=== PATIENT | male | born 1940 | race African-American/Black ===

== ENCOUNTER 2019-09-29 16:48 | Inpatient (IN) | payer MEDICARE, OTHER ==
[~2019-09-29] VITALS: Ht 167.6 cm; Wt 84.4 kg
[2019-09-29 19:30] VITALS: BP 116/88
--- NOTE | 2019-09-29 20:00 | NUR ---
New admission, medical/nursing report given from [facility]. Received patient awake in bed, stable condition; AAO x1 to person only. Primary language is Urdu. Room air, tolerating well. Vital signs are within normal limits. No complaints of pain at this moment. Physical assessment done. Skin assessment done and pictures taken. Fall prevention observed. Bed is in low and locked position, side rails up x2 for safety; bed alarm is on. Call light and frequently used items are within reach. Provided all needed education, including on how to use call light. Will continue to monitor and give care.
[2019-09-29] MEDS ORDERED: DONE10TA44 PO (20:11)
[2019-09-29] MEDS ORDERED: ASPI-605 PO (20:11)
[2019-09-29] MEDS ORDERED: CARB-93 PO (20:11)
[2019-09-29] MEDS ORDERED: METO-357 PO (20:11)
[2019-09-29] MEDS ORDERED: LEVE500T20 PO (20:11)
[2019-09-29] MEDS ORDERED: FOLI1CAP7 PO (20:11)
[2019-09-29] MEDS ORDERED: LISI2.5T2 PO (20:11)
[2019-09-29] MEDS ORDERED: HYDR50CA5 PO (20:11)
[2019-09-29] MEDS ORDERED: HYDR50TA62 PO (20:11)
[2019-09-29] MEDS ORDERED: ATOR40TA PO (20:11)
[2019-09-29] MEDS ORDERED: APIX5TAB PO (20:11)
[2019-09-29] MEDS ORDERED: TRAM50TA2 PO (20:11)
[2019-09-29] MEDS ORDERED: RANI300T4 PO (20:11)
[2019-09-29] MEDS ORDERED: CYAN-10 IJ (20:11)
[2019-09-29] MEDS ORDERED: LEVETIRACETAM 250 MG TABLET ONE (22:21)
[2019-09-29] MEDS: LEVETIRACETAM 500 MG TABLET PO SCH (22:31)
[2019-09-29] MEDS: ATORVASTATIN 40 MG TABLET PO SCH (22:31)
[2019-09-30] MEDS ORDERED: Z GUARD REMEDY PASTE 57 GM TUBE TOP PRN (02:00)
[2019-09-30 04:20] VITALS: BP 135/92
[2019-09-30 07:09] LABS: BASOPHILS % (AUTO) 0.6 % (0.0-2.0); EOSINOPHILS # (AUTO) 0.2 K/uL (0.0-0.7); EOSINOPHILS % (AUTO) 3.2 % (0.0-7.0); HEMATOCRIT 44.6 % (36.7-47.1); HEMOGLOBIN 14.5 g/dL (12.5-16.3); LYMPHOCYTES % (AUTO) 32.3 % (20.5-51.5); MEAN CORPUSCULAR HEMOGLOBIN 28.9 uug (23.8-33.4); MEAN CORPUSCULAR HGB CONC 32 g/dL (32.5-36.3); MEAN CORPUSCULAR VOLUME 89.1 fL (73.0-96.2); MONOCYTES # (AUTO) 0.8 K/uL (2.0-10.0); MONOCYTES % (AUTO) 12.9 % (0.0-11.0); NEUTROPHILS # (AUTO) 3.2 K/uL (1.8-8.9); PLATELET COUNT (AUTO) 213 K/uL (152-348); RED BLOOD CELL COUNT(AUTO) 5.01 MIL/uL (4.06-5.63); WHITE BLOOD COUNT (AUTO) 6.2 K/uL (3.6-10.2)
[2019-09-30 08:02] LABS: BILIRUBIN,TOTAL 0.4 mg/dL (0.2-1.0); CREATININE 1.1 mg/dL (0.6-1.3); MAGNESIUM 2.1 mg/dL (1.8-2.4); POTASSIUM 4.2 mmol/L (3.5-5.1)
[2019-09-30 08:04] LABS: THYROID STIMULATING HORMONE 3.72 mIU/mL (0.358-3.740)
[2019-09-30] MEDS ORDERED: APIXABAN 5 MG TABLET PO ONE (09:00)
[2019-09-30] MEDS ORDERED: [UNRECOGNIZED DRUG - OTHER] PO SCH (09:00)
[2019-09-30] MEDS ORDERED: TRAMADOL HCL 50 MG TABLET PO PRN (09:00)
[2019-09-30] MEDS ORDERED: FOLIC ACID PO SCH (09:00)
[2019-09-30] MEDS ORDERED: VITAMIN B COMP W C PO SCH (09:00)
[2019-09-30] MEDS ORDERED: TRAMADOL HCL 50 MG TABLET PO SCH (09:00)
[2019-09-30] MEDS: FOLIC ACID/VITAMIN B COMP W-C TABLET PO SCH (09:07)
[2019-09-30] MEDS: LEVETIRACETAM 500 MG TABLET PO SCH ×2 (09:08→20:09)
[2019-09-30] MEDS: LISINOPRIL 5 MG TABLET PO SCH (09:08)
[2019-09-30] MEDS: DONEPEZIL 10 MG TABLET PO SCH (09:10)
[2019-09-30] MEDS: METOPROLOL SUCCINATE XL 50 MG TAB.SR.24H PO SCH (09:11)
[2019-09-30] MEDS: ASPIRIN EC 81 MG TABLET.DR PO SCH (09:11)
[2019-09-30] MEDS: CARBIDOPA/LEVODOPA 25-100MG TABLET PO SCH ×2 (09:12→17:22)
[2019-09-30] MEDS: APIXABAN 5 MG TABLET PO SCH (17:23)
[2019-09-30 17:31] VITALS: BP 108/67
[2019-09-30] MEDS: ATORVASTATIN 40 MG TABLET PO SCH (20:09)
[2019-09-30 20:10] VITALS: BP 97/61
--- NOTE | 2019-10-01 05:00 | NUR ---
pt only alble to void 100 ml overnight, blader scan shows 176, gave opt 500 ml of water in parts, will continue to assess
[2019-10-01 05:24] VITALS: BP 94/62
[2019-10-01] MEDS: METOPROLOL SUCCINATE XL 50 MG TAB.SR.24H PO SCH (08:40)
[2019-10-01] MEDS: LEVETIRACETAM 500 MG TABLET PO SCH ×2 (08:40→20:15)
[2019-10-01] MEDS: LISINOPRIL 5 MG TABLET PO SCH (08:40)
[2019-10-01] MEDS: DONEPEZIL 10 MG TABLET PO SCH (08:40)
[2019-10-01] MEDS: FOLIC ACID/VITAMIN B COMP W-C TABLET PO SCH (08:40)
[2019-10-01] MEDS: ASPIRIN EC 81 MG TABLET.DR PO SCH (08:40)
[2019-10-01] MEDS: CARBIDOPA/LEVODOPA 25-100MG TABLET PO SCH ×2 (08:41→17:18)
[2019-10-01] MEDS: APIXABAN 5 MG TABLET PO SCH ×2 (08:45→17:20)
--- NOTE | 2019-10-01 16:10 | NUR ---
Patient continue therapy for ambulation, increase strenght and endurance. not in distress. no complaint of pain/discomfort. Continue supervision in meals, On swallowing and fall risk precaution maintained. will continue monitor
--- NOTE | 2019-10-01 19:30 | NUR ---
PATIENT ALERT AND ORIENTED X 1 AND FORGETFUL. NO C/O PAIN OR SOB AT THIS TIME. PATIENT BRIEF CHANGED, AND MADE COMFORTABLE. CALL LIGHT AND FREQUENTLY USED ITEMS WITHIN REACH. SIDE RAILS UP BILATERALLY AND BED ALARM ON. WILL CONTINUE TO MONITOR.
[2019-10-01 19:51] VITALS: BP 93/52
[2019-10-01] MEDS: ATORVASTATIN 40 MG TABLET PO SCH (20:15)
[2019-10-02 05:58] VITALS: BP 96/58
[2019-10-02 07:50] LABS: THYROID STIMULATING HORMONE 5.032 mIU/mL (0.358-3.740)
[2019-10-02 09:00] VITALS: BP 108/66
[2019-10-02] MEDS: METOPROLOL SUCCINATE XL 50 MG TAB.SR.24H PO SCH (09:00)
[2019-10-02] MEDS: CARBIDOPA/LEVODOPA 25-100MG TABLET PO SCH ×2 (09:06→17:29)
[2019-10-02] MEDS: DONEPEZIL 10 MG TABLET PO SCH (09:06)
[2019-10-02] MEDS: LEVETIRACETAM 500 MG TABLET PO SCH ×2 (09:06→20:30)
[2019-10-02] MEDS: FOLIC ACID/VITAMIN B COMP W-C TABLET PO SCH (09:06)
[2019-10-02] MEDS: ASPIRIN EC 81 MG TABLET.DR PO SCH (09:06)
[2019-10-02] MEDS: LISINOPRIL 5 MG TABLET PO SCH (09:07)
[2019-10-02] MEDS: APIXABAN 5 MG TABLET PO SCH ×2 (09:09→17:29)
--- NOTE | 2019-10-02 11:00 | NUR ---
Received patient in bed awake; Patient is AAO x 1-2, forgetful; NO acute distress noted in stable condition. Denies any pain at this time. Vital signs assessed and stable for patient. Due medications administered as ordered and scheduled; Held Metoprolol due to low BP 108/66 and HR of 58-60. Patient on PT/OT therapy. Still noted with left sided weakness. Safety measures in place, needs attended, skin kept clean and dry will continue with care.
--- NOTE | 2019-10-02 12:35 | NUR ---
INDIVIDUALIZE OVERALL PLAN OF CARE
[2019-10-02 17:00] VITALS: BP 112/78
--- NOTE | 2019-10-02 18:29 | NUR ---
Patient AAO X 1-2 and forgetful but able to make needs known. NO SOB noted. NO SOB noted. On PT/OT therapy; Patient cooperative with care. Due medications administered. Patient is BRP and with max assist. Skin kept clean and dry. Patient noted with an abrasion on left groin area while giving care. For wound consultation refereed. Safety measures in place, needs attended, call light left at bed side and reminded patient to use call light and will continue with care.
[2019-10-02 19:55] VITALS: BP 121/72
[2019-10-02] MEDS: ATORVASTATIN 40 MG TABLET PO SCH (20:30)
--- NOTE | 2019-10-02 20:42 | NUR ---
PATIENT IS IN BED, ALERT AND VERBALLY RESPONSIVE. AFEBRILE. NO ACUTE DISTRESS NOTED. CAN MAKE NEEDS KNOWN. ABLE TO FOLLOW SIMPLE COMMANDS. FALL, SAFETY, AND ASPIRATION PRECAUTIONS OBSERVED. STROKE ASSESSMENT DONE. RECEIVED DUE MEDICATIONS. TOLERATED MEDICATIONS WELL. BED AT LOW POSITION, BED WHEELS LOCKED, SIDE RAILS X 2 UP, CALL LIGHT WITHIN REACH.
[2019-10-03 06:00] VITALS: BP 120/73
--- NOTE | 2019-10-03 06:28 | NUR ---
PATIENT IS IN BED, ALERT AND VERBALLY RESPONSIVE. PATIENT SLEPT WELL THROUGHOUT THE NIGHT. ALL NEEDS ATTENDED. KEPT PATIENT WARM, DRY, AND COMFORTABLE. ENDORSE CARE ACCORDINGLY TO ONCOMING SHIFT.
[2019-10-03 08:00] VITALS: BP 140/68
[2019-10-03] MEDS: FOLIC ACID/VITAMIN B COMP W-C TABLET PO SCH (08:42)
[2019-10-03] MEDS: CARBIDOPA/LEVODOPA 25-100MG TABLET PO SCH ×2 (08:42→17:26)
[2019-10-03] MEDS: ASPIRIN EC 81 MG TABLET.DR PO SCH (08:42)
[2019-10-03] MEDS: DONEPEZIL 10 MG TABLET PO SCH (08:42)
[2019-10-03] MEDS: LEVETIRACETAM 500 MG TABLET PO SCH ×2 (08:42→20:04)
[2019-10-03] MEDS: METOPROLOL SUCCINATE XL 50 MG TAB.SR.24H PO SCH (08:43)
[2019-10-03] MEDS: LISINOPRIL 5 MG TABLET PO SCH (08:43)
[2019-10-03] MEDS: APIXABAN 5 MG TABLET PO SCH ×2 (08:45→17:25)
--- NOTE | 2019-10-03 10:49 | NUR ---
INTERDISCIPLINARY TEAM CONFERENCE
--- NOTE | 2019-10-03 12:47 | NUR ---
WOUND CARE CONSULT: PT PRESENTS WITH SCARS TO LOWER LEGS AND TO LEFT UPPER THIGH, PRESENT ON ADMISSION. RECOMMENDATIONS MADE FOR SKIN PROTECTION. DISCUSSED WITH NURSING STAFF. WILL SEE PRN. ENCARNACION IN AGREEMENT WITH PLAN OF CARE. Addendum: 10/03/19 at 1248 by RYAN CORRAL RN Amended: Links added.
[2019-10-03 17:00] VITALS: BP 104/67
--- NOTE | 2019-10-03 19:19 | NUR ---
Patient AAO x1. No acute distress. In stable condition and in bed at this time. Vital signs taken and within normal limit for patient. Due medications administered as ordered and scheduled and tolerated well. Patient assisted with feeding during care. Pt. noted with left sided weakness but cooperates with care. Skin kept clean and dry. Patient seen by wound Tx nurse and with an order to cover upper left inner thigh scar with Mepilex for protection. Skin kept clean and dry, needs attended, safety measures in place, call light left at bed side, endorsed to next shift and will continue with care.
[2019-10-03 19:44] VITALS: BP 101/62
[2019-10-03] MEDS: ATORVASTATIN 40 MG TABLET PO SCH (20:04)
--- NOTE | 2019-10-03 23:06 | NUR ---
Received pt resting in bed and watching tv. AAO x2. No acute distress noted. Denies pain/ discomfort. No facial cues noted for pain. Due meds given as ordered. Safety measures maintained. Call light and personal items within reach. Will continue to monitor.
[2019-10-04 05:29] VITALS: BP 105/74
--- NOTE | 2019-10-04 07:51 | NUR ---
Patient noted resting in bed with eyes closed, no facial cues of pain at this time, no signs of distress noted, call light in reach, bed locked and in lowest position, all needs met at this time, will continue to plan of care
[2019-10-04] MEDS: FOLIC ACID/VITAMIN B COMP W-C TABLET PO SCH (08:54)
[2019-10-04] MEDS: LEVETIRACETAM 500 MG TABLET PO SCH ×2 (08:54→20:18)
[2019-10-04] MEDS: LISINOPRIL 5 MG TABLET PO SCH (08:54)
[2019-10-04] MEDS: METOPROLOL SUCCINATE XL 50 MG TAB.SR.24H PO SCH (08:54)
[2019-10-04] MEDS: ASPIRIN EC 81 MG TABLET.DR PO SCH (08:55)
[2019-10-04] MEDS: CARBIDOPA/LEVODOPA 25-100MG TABLET PO SCH ×2 (08:55→17:18)
[2019-10-04] MEDS: DONEPEZIL 10 MG TABLET PO SCH (08:55)
[2019-10-04 09:00] VITALS: BP 110/56
[2019-10-04] MEDS: APIXABAN 5 MG TABLET PO SCH ×2 (09:02→17:21)
--- NOTE | 2019-10-04 19:40 | NUR ---
Received patient awake in bed, stable condition; AAO x1 to person only. Primary language is [place]. Room air, tolerating well. Vital signs are within normal limits. No complaints of pain at this moment. Physical assessment done. Skin assessment done. Fall prevention observed. Bed is in low and locked position, side rails up x2 for safety; bed alarm is on. Call light and frequently used items are within reach. Provided all needed education, including on how to use call light. Will continue to monitor and give care.
[2019-10-04 19:43] VITALS: BP 116/64
[2019-10-04 19:50] VITALS: BP 131/73
[2019-10-04] MEDS: ATORVASTATIN 40 MG TABLET PO SCH (20:18)
[2019-10-05 04:30] VITALS: BP 111/62
[2019-10-05 08:20] VITALS: BP 116/72
[2019-10-05] MEDS: LEVETIRACETAM 500 MG TABLET PO SCH ×2 (08:26→20:00)
[2019-10-05] MEDS: DONEPEZIL 10 MG TABLET PO SCH (08:26)
[2019-10-05] MEDS: LISINOPRIL 5 MG TABLET PO SCH (08:26)
[2019-10-05] MEDS: FOLIC ACID/VITAMIN B COMP W-C TABLET PO SCH (08:26)
[2019-10-05] MEDS: ASPIRIN EC 81 MG TABLET.DR PO SCH (08:27)
[2019-10-05] MEDS: CARBIDOPA/LEVODOPA 25-100MG TABLET PO SCH ×2 (08:27→17:28)
[2019-10-05] MEDS: METOPROLOL SUCCINATE XL 50 MG TAB.SR.24H PO SCH (08:28)
[2019-10-05] MEDS: APIXABAN 5 MG TABLET PO SCH ×2 (08:33→17:29)
[2019-10-05 16:00] VITALS: BP 133/73
[2019-10-05] MEDS: ATORVASTATIN 40 MG TABLET PO SCH (20:00)
[2019-10-05 20:35] VITALS: BP 117/70
[2019-10-06 05:15] VITALS: BP 112/53
[2019-10-06] MEDS: ASPIRIN EC 81 MG TABLET.DR PO SCH (08:40)
[2019-10-06] MEDS: DONEPEZIL 10 MG TABLET PO SCH (08:40)
[2019-10-06] MEDS: METOPROLOL SUCCINATE XL 50 MG TAB.SR.24H PO SCH (08:40)
[2019-10-06] MEDS: CARBIDOPA/LEVODOPA 25-100MG TABLET PO SCH ×2 (08:40→17:15)
[2019-10-06] MEDS: LEVETIRACETAM 500 MG TABLET PO SCH ×2 (08:41→20:33)
[2019-10-06] MEDS: LISINOPRIL 5 MG TABLET PO SCH (08:41)
[2019-10-06] MEDS: FOLIC ACID/VITAMIN B COMP W-C TABLET PO SCH (08:41)
[2019-10-06] MEDS: APIXABAN 5 MG TABLET PO SCH ×2 (08:48→17:19)
[2019-10-06 09:18] VITALS: BP 114/74
[2019-10-06 16:24] VITALS: BP 111/59
[2019-10-06 20:19] VITALS: BP 103/68
[2019-10-06] MEDS: ATORVASTATIN 40 MG TABLET PO SCH (20:33)
--- NOTE | 2019-10-07 04:52 | NUR ---
slept well throughout the night. aaox3-4 with periods of forgetfulness at times. Took meds with pudding. Repositioned for comfort. Turned to sides. Continent of bowel and bladder, sometimes has some periods of incontinence, patient prefers to wear diaper at night. Denies any pain nor any discomfort. Fall precautions maintained. Siderails up for safety. Call javier with reach.
[2019-10-07 05:45] VITALS: BP 109/65
[2019-10-07 07:56] VITALS: BP 108/72
[2019-10-07] MEDS: METOPROLOL SUCCINATE XL 50 MG TAB.SR.24H PO SCH (09:00)
[2019-10-07] MEDS: ASPIRIN EC 81 MG TABLET.DR PO SCH (09:23)
[2019-10-07] MEDS: FOLIC ACID/VITAMIN B COMP W-C TABLET PO SCH (09:23)
[2019-10-07] MEDS: LEVETIRACETAM 500 MG TABLET PO SCH ×2 (09:24→20:12)
[2019-10-07] MEDS: CARBIDOPA/LEVODOPA 25-100MG TABLET PO SCH ×2 (09:24→17:14)
[2019-10-07] MEDS: DONEPEZIL 10 MG TABLET PO SCH (09:24)
[2019-10-07] MEDS: LISINOPRIL 5 MG TABLET PO SCH (09:24)
[2019-10-07] MEDS: APIXABAN 5 MG TABLET PO SCH ×2 (09:26→17:16)
--- NOTE | 2019-10-07 15:06 | NUR ---
Patient is alert and oriented x 1-2; forgetful' lester to make needs known at times. In stable condition. No acute distress noted. Vital signs taken and stable. Due medications administered as ordered and tolerated well. Patient noted with poor appetite informed Dr. Carrillo with an order for Megace 400MG PO daily and Ensure with meal TID. Patient assisted with feeding during shift. On PT/OT therapy. Needs attended, safety measures in place, call light left at bed side endorsed to next shift and will continue with care.
[2019-10-07 15:13] VITALS: BP 101/60
[2019-10-07] MEDS: MEGESTROL ACETATE 400 MG/10 ML LIQUID UDC PO SCH (15:31)
[2019-10-07] MEDS: ENSURE WITH FIBER 237 ML LIQUID (CHOCOLATE) PO SCH (17:15)
--- NOTE | 2019-10-07 18:33 | NUR ---
patient in bed awake and watching TV at this time. Vital signs within normal limit for patient. Patient took 100% of Ensure and 25% of of the tray for dinner. Megace 400mg PO Daily administered during shift for appetite stimulant. All other needs attended, safety measures in place, call light left within easy reach and will continue with care.
[2019-10-07] MEDS: ATORVASTATIN 40 MG TABLET PO SCH (20:12)
--- NOTE | 2019-10-07 20:29 | NUR ---
Received pt resting in bed and watching tv. AAO x1-2, noted to be forgetful. No acute distress noted. Denies pain/ discomfort. Due meds given as ordered. Safety measures maintained. Call light and personal items within reach. Will continue to monitor.
[2019-10-07 20:51] VITALS: BP 101/67
[2019-10-08 04:00] VITALS: BP 97/65
[2019-10-08 08:09] VITALS: BP 133/75
[2019-10-08] MEDS: CARBIDOPA/LEVODOPA 25-100MG TABLET PO SCH ×2 (08:38→16:17)
[2019-10-08] MEDS: ASPIRIN EC 81 MG TABLET.DR PO SCH (08:38)
[2019-10-08] MEDS: LEVETIRACETAM 500 MG TABLET PO SCH ×2 (08:39→20:52)
[2019-10-08] MEDS: METOPROLOL SUCCINATE XL 50 MG TAB.SR.24H PO SCH (08:39)
[2019-10-08] MEDS: DONEPEZIL 10 MG TABLET PO SCH (08:39)
[2019-10-08] MEDS: LISINOPRIL 5 MG TABLET PO SCH (08:40)
[2019-10-08] MEDS: ENSURE WITH FIBER 237 ML LIQUID (CHOCOLATE) PO SCH ×3 (08:41→16:19)
[2019-10-08] MEDS: APIXABAN 5 MG TABLET PO SCH ×2 (08:45→16:18)
[2019-10-08] MEDS: MEGESTROL ACETATE 400 MG/10 ML LIQUID UDC PO SCH (09:45)
[2019-10-08] MEDS: FOLIC ACID/VITAMIN B COMP W-C TABLET PO SCH (09:45)
[2019-10-08 14:56] VITALS: BP 109/61
--- NOTE | 2019-10-08 19:43 | NUR ---
Patient in stable condition, No new change of condition noted. VS stable. Monitored throughout shift. Due medications administered as scheduled. Pt. on PT/OT therapy. Left side weakness still noted. Due medications administered and tolerated well. Safety needs in place, call light left at bed side, endorsed to next shift and will continue with care.
--- NOTE | 2019-10-08 19:45 | NUR ---
Received patient awake in bed, stable condition; AAO x1 to person only. Primary language is Malagasy. Room air, tolerating well. Vital signs are within normal limits. No complaints of pain at this moment. Physical assessment done. Skin assessment done. Fall prevention observed. Bed is in low and locked position, side rails up x2 for safety; bed alarm is on. Call light and frequently used items are within reach. Provided all needed education, including on how to use call light. Will continue to monitor and give care.
[2019-10-08 21:38] VITALS: BP 92/55
[2019-10-09 05:53] VITALS: BP 122/66
[2019-10-09 07:51] VITALS: BP 123/67
[2019-10-09] MEDS: MEGESTROL ACETATE 400 MG/10 ML LIQUID UDC PO SCH (09:23)
[2019-10-09] MEDS: FOLIC ACID/VITAMIN B COMP W-C TABLET PO SCH (09:23)
[2019-10-09] MEDS: LEVETIRACETAM 500 MG TABLET PO SCH ×2 (09:23→21:02)
[2019-10-09] MEDS: ASPIRIN EC 81 MG TABLET.DR PO SCH (09:23)
[2019-10-09] MEDS: CARBIDOPA/LEVODOPA 25-100MG TABLET PO SCH ×2 (09:23→16:22)
[2019-10-09] MEDS: METOPROLOL SUCCINATE XL 50 MG TAB.SR.24H PO SCH (09:24)
[2019-10-09] MEDS: LISINOPRIL 5 MG TABLET PO SCH (09:27)
[2019-10-09] MEDS: APIXABAN 5 MG TABLET PO SCH ×2 (09:28→16:23)
[2019-10-09] MEDS: ENSURE WITH FIBER 237 ML LIQUID (CHOCOLATE) PO SCH ×3 (09:29→17:31)
[2019-10-09] MEDS: DONEPEZIL 10 MG TABLET PO SCH (09:29)
[2019-10-09 15:27] VITALS: BP 99/59
--- NOTE | 2019-10-09 18:23 | NUR ---
Patient is AAO x 1-2, very forgetful, reoriented while giving care. No acute distress noted. Vital signs are stable for patient. Due medications tolerated. Discussed diet plan with speech therapist and with an order for soft diet. patient assisted with feeding during care; NO s/sx of aspiration noted. Skin kept clean and dry. Left sided weakness noted. Safety needs in place, call light within easy reach, needs met and will continue with care.
[2019-10-09 20:21] VITALS: BP 108/52
[2019-10-10 05:20] VITALS: BP 117/66
--- NOTE | 2019-10-10 06:04 | NUR ---
Received patient in bed. AAO x1, only by name, sometimes forgetful. Not in acute distress or SOB. On room air. No Complain of pain. All due medications given as ordered and well tolerated. NIH Stroke Scale done. Fall prevention observed. Safety measures maintained. All needs attended promptly. Bed in low and lock position, alarm on, side rails up x2 for safety. Call light and frequently used items within reach. Continue to monitor and will endorse to the oncoming nurse accordingly.
[2019-10-10 07:40] VITALS: BP 117/69
[2019-10-10] MEDS: ASPIRIN EC 81 MG TABLET.DR PO SCH (08:52)
[2019-10-10] MEDS: CARBIDOPA/LEVODOPA 25-100MG TABLET PO SCH ×2 (08:53→16:42)
[2019-10-10] MEDS: LEVETIRACETAM 500 MG TABLET PO SCH ×2 (08:53→20:51)
[2019-10-10] MEDS: FOLIC ACID/VITAMIN B COMP W-C TABLET PO SCH (08:53)
[2019-10-10] MEDS: DONEPEZIL 10 MG TABLET PO SCH (08:53)
[2019-10-10] MEDS: METOPROLOL SUCCINATE XL 50 MG TAB.SR.24H PO SCH (08:53)
[2019-10-10] MEDS: LISINOPRIL 5 MG TABLET PO SCH (08:53)
[2019-10-10] MEDS: APIXABAN 5 MG TABLET PO SCH ×2 (08:57→16:42)
[2019-10-10] MEDS: ENSURE WITH FIBER 237 ML LIQUID (CHOCOLATE) PO SCH ×3 (08:57→16:42)
[2019-10-10] MEDS: MEGESTROL ACETATE 400 MG/10 ML LIQUID UDC PO SCH (08:58)
--- NOTE | 2019-10-10 13:29 | NUR ---
INTERDISCIPLINARY TEAM CONFERENCE
--- NOTE | 2019-10-10 15:32 | NUR ---
Received patient awake in bed. Continue therapy for strenght and endurance. tolerated well. Continue fall risk precaution maintained. not in distress. Continue assisting in meal time for aspiration and monitoring difficulty swallowing. will continue monitor
[2019-10-10 15:39] VITALS: BP 98/54
--- NOTE | 2019-10-10 19:40 | NUR ---
PATIENT IS IN BED WITH HOB ELEVATED AT 60 DEGREES. ALERT AND VERBALLY RESPONSIVE. AFEBRILE. PATIENT DENIES PAIN OR DISCOMFORT AT THIS TIME. PATIENT ABLE TO FOLLOW SIMPLE COMMANDS. FALL AND SAFETY PRECAUTIONS OBSERVED. CALL LIGHT AND PERSONAL BELONGINGS WITHIN REACH. BED WHEELS LOCKED. SIDE RAILS X 2 UP. BED ALARM ON. WILL CONTINUE TO MONITOR PATIENT.
[2019-10-10 20:01] VITALS: BP 116/67
[2019-10-11 05:44] VITALS: BP 118/75
--- NOTE | 2019-10-11 06:33 | NUR ---
PATIENT IS ASLEEP IN BED BUT EASILY AROUSED. IN NO ACUTE DISTRESS. NO COMPLAINTS OF PAIN. KEPT PATIENT WARM, DRY, AND COMFORTABLE. FALL, SAFETY, ASPIRATION, AND SEIZURE PRECAUTIONS OBSERVED. CALL LIGHT WITHIN REACH, BED AT LOW POSITION WITH BED WHEELS LOCKED. BED ALARM ON. SIDE RAILS X 2 UP. ALL NEEDS ATTENDED.
[2019-10-11 08:00] VITALS: BP 133/72
--- NOTE | 2019-10-11 08:00 | NUR ---
Patient noted resting in bed at this time, call light in reach, bed locked and in lowest position, no signs of distress noted, no complaints of pain at this time, all needs met
[2019-10-11] MEDS: APIXABAN 5 MG TABLET PO SCH ×2 (08:19→17:25)
[2019-10-11] MEDS: ASPIRIN EC 81 MG TABLET.DR PO SCH (08:22)
[2019-10-11] MEDS: CARBIDOPA/LEVODOPA 25-100MG TABLET PO SCH ×2 (08:22→17:24)
[2019-10-11] MEDS: DONEPEZIL 10 MG TABLET PO SCH (08:22)
[2019-10-11] MEDS: METOPROLOL SUCCINATE XL 50 MG TAB.SR.24H PO SCH (08:23)
[2019-10-11] MEDS: FOLIC ACID/VITAMIN B COMP W-C TABLET PO SCH (08:23)
[2019-10-11] MEDS: LEVETIRACETAM 500 MG TABLET PO SCH ×2 (08:23→20:35)
[2019-10-11] MEDS: LISINOPRIL 5 MG TABLET PO SCH (08:25)
[2019-10-11] MEDS: MEGESTROL ACETATE 400 MG/10 ML LIQUID UDC PO SCH (08:25)
[2019-10-11] MEDS: ENSURE WITH FIBER 237 ML LIQUID (CHOCOLATE) PO SCH ×3 (08:27→17:25)
[2019-10-11 16:55] VITALS: BP 134/72
[2019-10-11 20:25] VITALS: BP 118/66
--- NOTE | 2019-10-12 00:12 | NUR ---
Awake alert and oriented x2-3 upon initial rounds. No acute distress noted. Call javier within reach. Siderails up for safety. VSS. Incontinent of bowel and urine. Kept clean and dry. Will monitor patient. Tolerated po meds well.
[2019-10-12 06:03] VITALS: BP 130/72
--- NOTE | 2019-10-12 06:03 | NUR ---
slept well most of the shift. needs attended. repositioned for comfort. incontinent of urine x2. kept clean and dry. No BM noted this shift. VSS. Will monitor patient.
--- NOTE | 2019-10-12 06:48 | NUR ---
sleeping at short intervals. aaox3-4 needs attended. BP 181/71 Clonidine 0.1mg given for elevated BP. Will monitor patient's BP. Kept comfortable. Incontinent of urine x4. Kept clean and dry. No BM noted this shift. Fall precautions maintained. Siderails up for safety.
--- NOTE | 2019-10-12 07:11 | NUR ---
Patient noted resting in bed with eyes closed, no facial cues of pain noted, no signs of distress noted, call light in reach, bed locked and in lowest position, all needs met at this time
[2019-10-12 07:57] VITALS: BP 107/62
[2019-10-12] MEDS: APIXABAN 5 MG TABLET PO SCH ×2 (08:58→16:03)
[2019-10-12] MEDS: LEVETIRACETAM 500 MG TABLET PO SCH ×2 (08:59→20:43)
[2019-10-12] MEDS: DONEPEZIL 10 MG TABLET PO SCH (08:59)
[2019-10-12] MEDS: MEGESTROL ACETATE 400 MG/10 ML LIQUID UDC PO SCH (08:59)
[2019-10-12] MEDS: CARBIDOPA/LEVODOPA 25-100MG TABLET PO SCH ×2 (09:00→16:04)
[2019-10-12] MEDS: ASPIRIN EC 81 MG TABLET.DR PO SCH (09:00)
[2019-10-12] MEDS: METOPROLOL SUCCINATE XL 50 MG TAB.SR.24H PO SCH (09:00)
[2019-10-12] MEDS: FOLIC ACID/VITAMIN B COMP W-C TABLET PO SCH (09:00)
[2019-10-12] MEDS: LISINOPRIL 5 MG TABLET PO SCH (09:00)
[2019-10-12] MEDS: ENSURE WITH FIBER 237 ML LIQUID (CHOCOLATE) PO SCH ×3 (09:01→16:04)
[2019-10-12 16:08] VITALS: BP 118/72
--- NOTE | 2019-10-12 19:22 | NUR ---
No changes this shift, no signs of distress or complaints of pain, will endorse to restaurant shift supervisor nurse
--- NOTE | 2019-10-12 20:00 | NUR ---
PATIENT AWAKE IN BED. A/O X3. DENIES PAIN OR DISCOMFORT. NO RESP. DISTRESS NOTED. VS WNL. CALL LIGHT IN REACH. ALL NEEDS ATTENDED. ALL NEEDS ATTENDED. WILL CONTINUE TO MONITOR AND ASSESS.
[2019-10-12 22:24] VITALS: BP 109/70
[2019-10-13 05:43] VITALS: BP 133/89
[2019-10-13 07:49] VITALS: BP 114/86
[2019-10-13] MEDS: APIXABAN 5 MG TABLET PO SCH ×2 (08:18→16:36)
[2019-10-13] MEDS: ASPIRIN EC 81 MG TABLET.DR PO SCH (08:21)
[2019-10-13] MEDS: DONEPEZIL 10 MG TABLET PO SCH (08:21)
[2019-10-13] MEDS: LEVETIRACETAM 500 MG TABLET PO SCH (08:21)
[2019-10-13] MEDS: MEGESTROL ACETATE 400 MG/10 ML LIQUID UDC PO SCH (08:21)
[2019-10-13] MEDS: CARBIDOPA/LEVODOPA 25-100MG TABLET PO SCH ×2 (08:21→16:33)
[2019-10-13] MEDS: FOLIC ACID/VITAMIN B COMP W-C TABLET PO SCH (08:21)
[2019-10-13] MEDS: LISINOPRIL 5 MG TABLET PO SCH (08:22)
[2019-10-13 08:23] VITALS: BP 114/86
[2019-10-13] MEDS: METOPROLOL SUCCINATE XL 50 MG TAB.SR.24H PO SCH (08:23)
[2019-10-13] MEDS: ENSURE WITH FIBER 237 ML LIQUID (CHOCOLATE) PO SCH ×2 (08:27→12:28)
--- NOTE | 2019-10-13 16:39 | NUR ---
patient discharged at this time via wheelchair and private car and family member Moe at 1440, vitals: 107/60, 100 % on room air, 19 respirations, 56 pulse, 97.4, no complaints of pain, exit care provided, discharge instructions given, pictures of left inner thigh and left lucero abrasions taken and placed in chart, all belongings accounted for, patient confused and unable to sign for himself, medications faxed to prefer pharmacy, follow up appointment arranged by case management, No DME's supplied.
== END 2019-10-13 16:30 | disposition home health service (06) | DRG 56 ==
PROVIDERS: ADMIT Physical Medicine & Rehabilitation Pain Medicine; ATTEND Physical Medicine & Rehabilitation Pain Medicine
DX: I69.354 Hemiplegia and hemiparesis following cerebral infarction affecting left non-dominant side (principal); G93.41 Metabolic encephalopathy; E44.1 Mild protein-calorie malnutrition; D68.59 Other primary thrombophilia; G20 Parkinson's disease; F02.80 Dementia in other diseases classified elsewhere, unspecified severity, without behavioral disturbance, psychotic disturbance, mood disturbance, and anxiety; F01.50 Vascular dementia, unspecified severity, without behavioral disturbance, psychotic disturbance, mood disturbance, and anxiety; I11.9 Hypertensive heart disease without heart failure; E88.09 Other disorders of plasma-protein metabolism, not elsewhere classified; R73.03 Prediabetes; R56.9 Unspecified convulsions
CPT/HCPCS: 36415; 83735; 84100; 84443; 85025; J8999